=== PATIENT | male | born 1980 | race African-American/Black ===

== ENCOUNTER 2018-12-16 18:22 | Emergency (ER) | payer MEDICAID, OTHER ==
[~2018-12-16] VITALS: Ht 152.4 cm; Wt 90.7 kg
[2018-12-16] MEDS ORDERED: ONDANSETRON HCL 4 MG/2 ML VIAL IV ONE (18:45)
[2018-12-16] MEDS ORDERED: FAMOTIDINE (10MG/ML) 2ML VL IV ONE (18:45)
[2018-12-16 19:25] LABS: Basophils # (auto) 0 uL; Basophils % (auto) 0.6 % (0.0-2.0); Eosinophils # (auto) 0 uL; Eosinophils % (auto) 0.2 % (0.0-7.0); Hematocrit 47.7 % (41.0-53.0); Hemoglobin 15.8 g/dL (13.5-17.5); Lymphocytes # (auto) 1.4 uL; Lymphocytes % (auto) 17.7 % (10.0-50.0); Mean Corpuscular Hemoglobin 29.2 pg (28.0-32.0); Mean Corpuscular Hgb Conc. 33.2 g/dL (32.0-36.0); Monocytes # (auto) 0.5 uL; Monocytes % (auto) 5.9 % (0.0-12.0); Neutrophils # (auto) 6.1 uL; Neutrophils % (auto) 75.6 % (37.0-80.0); Nucleated Red Blood Cells % 0.1 %; Platelet Count (auto) 238 10^3/uL (140-450); Red Blood Cells 5.42 10^6/uL (4.5-5.90); Red Cell Distribution Width 16.7 % (11.8-14.3); White Blood Cell 8.1 10^3/uL (4.4-10.8)
[2018-12-16 19:34] LABS: Albumin 4.1 g/dL (3.4-5.0); Anion Gap 15 (5-15); Blood Urea Nitrogen 11 mg/dL (7-18); Calcium 8.9 mg/dL (8.5-10.1); Carbon Dioxide 26 mmol/L (21-32); Chloride 97 mmol/L (98-107); Glucose 152 mg/dL (74-106); Lipase 177 U/L (73-393); Potassium 3.5 mmol/L (3.5-5.1); Sodium 138 mmol/L (136-145)
[2018-12-16 19:36] LABS: Alanine Aminotransferase 129 U/L (16-61); Aspartate Aminotransferase 80 U/L (15-37); BUN/Creatinine Ratio 10.5; GFR African American 102 mL/min; GFR Non-African American 84 mL/min
[2018-12-16 19:41] LABS: Alkaline Phosphatase 89 U/L (45-117); Bilirubin, Total 0.4 mg/dL (0.2-1.0); Total Protein 7.7 g/dL (6.4-8.2)
[2018-12-16 22:10] VITALS: BP 140/91
== END 2018-12-16 22:26 | disposition home or self-care (01) ==
LOC: EDBD 18:22 → ER 18:25
DX: K29.70 Gastritis, unspecified, without bleeding (principal); F10.129 Alcohol abuse with intoxication, unspecified; F17.210 Nicotine dependence, cigarettes, uncomplicated; Y90.6 Blood alcohol level of 120-199 mg/100 ml
CPT/HCPCS: 36415; 71046; 80053; 80320; 83690; 84484; 85025; 93005